=== PATIENT | female | born 1955 | race Caucasian/White ===

== ENCOUNTER 2017-08-21 10:39 | Observation (INO) | payer OTHER, SELFPAY ==
[2017-08-08 15:43] VITALS: BP 137/73; PULSE 85; RESP 16; TEMP 36.7; O2SAT 97; BMI 40.4
[2017-08-08 16:23] LABS: Hemoglobin A1c 6.9 % (4.2-6.3)
[2017-08-08 16:27] LABS: International Normalized Ratio 1.1; Prothrombin Time (Protime)PT. 13.8 SECONDS (11.7-14.9)
[2017-08-08 16:28] LABS: Partial Thromboplast Time 32.5 Seconds (24.1-36.2)
[2017-08-21] VITALS (9 sets, daily range): BP systolic 116–182; BP diastolic 70–93; PULSE 68–115; RESP 16–19; TEMP 36.2–36.6; O2SAT 89–100; BMI 40.4
[2017-08-21 08:36] LABS: Anion Gap 6 (5-15); BUN 18 mg/dL (7-18); Calcium,Total 9.1 mg/dL (8.5-10.1); Chloride 107 mmol/L (98-107); Creatinine, Serum 0.78 mg/dL (0.55-1.02); EST Glomerular Filtration Rate 79 mL/min (>60); Est Glom Filt Rate - Afr Amer 96 mL/min (>60); Estimated Creatinine Clearance 64.58 ml/min; Glucose 172 mg/dL (74-106); Potassium 4.5 mmol/L (3.5-5.1); Sodium Level 140 mmol/L (136-145)
[2017-08-21] MEDS: oxyCODONE HCl Cr 10 MG Tablet PO (08:41)
[2017-08-21] MEDS: Acetaminophen 500 MG Tablet 1000 MG PO ×3 (08:41→20:59)
[2017-08-21 09:02] LABS: Bedside Glucose 167 mg/dL (70-110)
--- NOTE | 2017-08-21 10:40 | RAD_ITS ---
STUDY: X-RAY - RIGHT KNEE REASON FOR EXAM: Female, 62 years old. Total knee replacement. TECHNIQUE: AP and lateral view(s) of the knee. COMPARISON: None. FINDINGS: Normal visualized distal femur. Normal visualized proximal tibia and fibula. Normal proximal tibiofibular articulation. The patient is status post total knee replacement. There is good alignment. Postoperative soft tissue changes. RAD/Knee 1 or 2 Views IMPRESSION: Status post total knee replacement. Postoperative soft tissue changes. Electronically Signed: Margarito Lala MD at 13:35 EST Tel [phone], Service support ,
[2017-08-21] MEDS: Cefazolin 2 GM in 0.9% Normal Saline 100 ML IV (10:44)
[2017-08-21 13:36] LABS: Bedside Glucose 149 mg/dL (70-110)
[2017-08-21] MEDS: Ondansetron 4 MG/2 ML Vial IV (14:00)
--- NOTE | 2017-08-21 15:52 | CPS ---
Pt not in room at this time. Incentive Spirometer at bedside.
[2017-08-21] MEDS: Aspirin 325 MG Tablet PO (17:18)
[2017-08-21] MEDS: oxyCODONE 5 MG Tablet PO (17:18)
[2017-08-21] MEDS: Cefazolin 1 GM/50 ML BAG IV (19:02)
[2017-08-21] MEDS: Lactated Ringers 1,000 ML 125 ML IV (21:00)
[2017-08-22 02:55] VITALS: BP 124/56; PULSE 82; RESP 19; TEMP 37; O2SAT 93
[2017-08-22] MEDS: Cefazolin 1 GM/50 ML BAG IV (04:00)
[2017-08-22] MEDS: oxyCODONE 5 MG Tablet PO ×4 (05:17→20:59)
[2017-08-22] MEDS: Acetaminophen 500 MG Tablet 1000 MG PO ×3 (05:19→21:00)
[2017-08-22 06:37] LABS: Hematocrit 32.2 % (37-47); Hemoglobin 10.8 g/dl (12.0-15.0); Mean Corp Hgb Conc 33.5 g/gl (32-36); Mean Corpuscular Hgb 32.8 pg (27.0-32.0); Mean Corpuscular Volume 97.9 fL (81-99); Mean Platelet Vol. 8.9 fl (6.2-12.0); Platelet Count 206 K/mm3 (150-450); RBC Distribution Width CV 12.3 % (11.6-14.6); RBC Distribution Width SD 42.3 fl (35.1-43.9); Red Blood Count 3.29 M/mm3 (4.2-5.4); White Blood Count 7.1 K/mm3 (4.4-11.0)
[2017-08-22 06:38] LABS: Scan Indicated on CBC? Y/N NO
[2017-08-22 06:48] LABS: Anion Gap 7 (5-15); BUN 14 mg/dL (7-18); BUN/Creat Ratio 20.6 RATIO (10-20); Calcium,Total 7.9 mg/dL (8.5-10.1); Chloride 106 mmol/L (98-107); Creatinine, Serum 0.68 mg/dL (0.55-1.02); EST Glomerular Filtration Rate 93 mL/min (>60); Est Glom Filt Rate - Afr Amer 113 mL/min (>60); Estimated Creatinine Clearance 74.07 ml/min; Glucose 149 mg/dL (74-106); Potassium 4.1 mmol/L (3.5-5.1); Sodium Level 141 mmol/L (136-145)
--- NOTE | 2017-08-22 07:55 | PCM.PN.ORT ---
Subjective: Patient is resting comfortably in bed during exam. No adverse events overnight. Pain in the right knee has been fairly well controlled to this point she has gotten not been transferred to the bedside commode. She currently denies chest pain, shortness of breath, calf pain. His occasionally felt dizzy with standing but no syncopal events. Objective: Patient is alert and oriented ?3. No acute distress at rest. Breathing easily without respiratory distress. Inspection of right knee reveals a dressing with 1 small drop of bloody drainage otherwise intact. Negative Doug bilaterally without signs of DVT sensation intact to light touch bilateral lower extremities. Patient able to actively plantar and dorsiflex bilateral feet against resistance. Pedal pulses present and equal bilaterally. Patient is neurovascularly intact. - Physical Exam Vital Signs Temp Pulse Resp BP Pulse Ox 98.6 F 82 19 H 124/56 H 93 08/22/17 02:55 08/22/17 02:55 08/22/17 02:55 08/22/17 02:55 08/22/17 02:55 Oxygen Flow Rate 2 Oxygen Delivery Method Room Air Weight: 107 kg Body Mass Index (BMI) 40.4 Finger Stick Blood Glucose 149 Intake and Output for Last 24 Hours 08/20/17 08/21/17 08/22/17 23:59 23:59 23:59 Intake Total 2913 / 2913 2046 / 2046 Output Total 375 / 375 1050 / 1050 Balance 2538 / 2538 996 / 996 Laboratory Tests Past 24 Hrs 08/21/17 08/22/17 08/22/17 08:10 06:00 06:00 WBC 7.1 RBC 3.29 L Hgb 10.8 L Hct 32.2 L MCV 97.9 MCH 32.8 H MCHC 33.5 RDW 12.3 RDW Differential 42.3 Plt Count 206 MPV 8.9 Sodium 140 141 Potassium 4.5 4.1 Chloride 107 106 Carbon Dioxide 27.0 28.0 Anion Gap 6 7 BUN 18 14 Creatinine 0.78 0.68 Estim Creat Clear Calc 64.58 74.07 Est GFR (MDRD) Af Amer 96 113 Est GFR (MDRD) Non-Af 79 93 BUN/Creatinine Ratio 23.0 H 20.6 H Glucose 172 H 149 H Calcium 9.1 7.9 L POC Glucose 08/21/17 08/21/17 13:30 08:28 POC Glucose 149 H 167 H Assessment/Plan 1. Status post right TKA; postop day #1 2. Continue Tylenol and OxyIR for pain control 3. DVT prophylaxis; bilateral teds, SCDs and begin aspirin therapy 4. Begin PT/OT; weightbearing as tolerated right lower extremity with a walker 5. Drop in hemoglobin/hematocrit, asymptomatic; continue to monitor. Without indication for transfusion 6. Encourage incentive spirometry 7. Continue discharge planning with case management. If patient continues with adequate pain control and does well with physical therapy today we will anticipate discharge to home
--- NOTE | 2017-08-22 08:04 | PCM.DC.TKR ---
Discharge Diet: 1800 Calorie Control Diet Discharge Activity: May Not Drive, May not drive while taking narcotic pain medications., Use Walker May shower in (days): 2 - Okay to shower over Mepilex dressing Ice area for (Minutes): 20 - every hour while awake. Weight Bearing Status: Weight bearing as tolerated Elevate: Operative Extremity Additional Activity Instructions:: Wear elastic stockings for 2 weeks after your surgery. See postoperative pink sheet Call your doctor if your incision/area has: Continuous Slow Oozing, Sudden Increased Bleeding, Increased Pain/ Swelling, Increased Redness, Foul Smelling Discharge Call your doctor if you observe: Fever of 101 or Higher, Coldness, Increased Pain, Numbness or Tingling, Change in Color, Calf discomfort, Uncontrolled pain Remove Dressing in (days):: 5 Cleanse incision/area with: Soap & Water Additional Dressing/Incision Instructions:: See postoperative pink sheet Allergies/Adverse Reactions: Allergies lidocaine Allergy (Verified 08/08/17 15:17) Hives Medications to take at Discharge Ascorbic Acid [Vitamin C] 500 mg PO DAILY@0800 08/08/17 Cholecalciferol (Vitamin D3) [Vitamin D3] 1,000 unit PO DAILY 08/08/17 Cyanocobalamin [Vitamin B12] 1,000 mcg PO DAILY@0800 08/08/17 Docusate Sodium [Colace] 200 mg PO DAILY 08/08/17 Ferrous Sulfate [Iron] 325 mg PO DAILY 08/08/17 Glimepiride [Amaryl] 4 mg PO DAILY 08/08/17 Lisinopril [Zestril] 5 mg PO DAILY 08/08/17 Revestatrol 250 mg PO DAILY 08/08/17 Simvastatin [Zocor] 10 mg PO DAILY 08/08/17 Sitagliptin Phos/Metformin HCl [Janumet 50-1,000 MG Tablet] 2 tablet PO DAILY 08/08/17 Turmeric Root Extract [Turmeric] 500 mg PO BID 08/08/17 Vital Reds Dietary Drink 8 oz PO DAILY 08/08/17 Acetaminophen [Tylenol] 1,000 mg PO Q8 #60 tab 08/22/17 Aspirin 325 mg PO BIDCM #30 tab 08/22/17 Linagliptin [Tradjenta] 5 mg PO DAILY@0800 tablet 08/22/17 Metformin(XR) [Glucophage Xr] 2,000 mg PO DAILY@0800 tablet 08/22/17 Oxycodone [Oxyir] 5 - 10 mg PO Q4H PRN PRN 7 Days #56 tablet 08/22/17 The following prescriptions were given: Oxycodone [Oxyir] 5 - 10 mg PO Q4H PRN PRN 7 Days #56 tablet PRN Reason: Mod-Severe Pain (-04/24) Acetaminophen [Tylenol] 1,000 mg PO Q8 #60 tab Aspirin 325 mg PO BIDCM #30 tab Primary Care Physician: Won Barnhart [Primary Care Provider] - Proposed Discharge Date: 08/22/17
[2017-08-22] MEDS: Glimepiride 4 MG Tablet PO (08:56)
[2017-08-22] MEDS: Ferrous Sulfate 325 MG Tablet PO (08:56)
[2017-08-22] MEDS: Aspirin 325 MG Tablet PO ×2 (08:56→17:31)
[2017-08-22] MEDS: LINAGLIPTIN 5 MG TABLET PO (08:57)
[2017-08-22] MEDS: Cyanocobalamin 500 MCG Tablet 1000 MCG PO (08:58)
[2017-08-22] MEDS: Docusate Sodium 100 MG Capsule 200 MG PO (08:58)
[2017-08-22] MEDS: Ascorbic Acid 500 MG Tablet PO (08:58)
[2017-08-22] MEDS: Atorvastatin Calcium 10 MG Tablet 5 MG PO (08:58)
[2017-08-22] MEDS: Lisinopril 5 MG Tablet PO (08:59)
[2017-08-22 09:18] VITALS: BP 134/70; PULSE 85; RESP 18; TEMP 36.7; O2SAT 95
--- NOTE | 2017-08-22 10:40 | CASEMGMT ---
YANETH MAYS Face to Face with patient for initial transition planning/care coordination assessment. RN TABATHA introduced self and role at [facility]. Patient lying in bed, alert and oriented. Patient willing to participate in assessment and is able to answer all questions appropriately. Care providers, pharmacy, and demographics verified. See link attached. Patient wishes to discharge home and is setup with Robina Dubon for outpatient therapy. Patient states she has no further needs or concerns at this time. CM to follow for discharge planning needs that may arise. Disposition Plan: Patient wishes to discharge home with outpatient therapy, family support, and follow-up plans in place.
[2017-08-22 15:12] VITALS: BP 128/71; PULSE 78; RESP 18; TEMP 37; O2SAT 94
[2017-08-22 20:34] VITALS: BP 139/53; PULSE 88; RESP 18; TEMP 36.9; O2SAT 97
[2017-08-23 02:29] VITALS: BP 137/72; PULSE 104; RESP 20; TEMP 37.1; O2SAT 96
[2017-08-23] MEDS: oxyCODONE 5 MG Tablet PO ×2 (04:07→12:56)
[2017-08-23 05:55] LABS: Hematocrit 32.5 % (37-47); Hemoglobin 10.6 g/dl (12.0-15.0); Mean Corp Hgb Conc 32.6 g/gl (32-36); Mean Corpuscular Hgb 32.1 pg (27.0-32.0); Mean Corpuscular Volume 98.5 fL (81-99); Mean Platelet Vol. 8.6 fl (6.2-12.0); Platelet Count 205 K/mm3 (150-450); RBC Distribution Width CV 12.5 % (11.6-14.6); White Blood Count 8.7 K/mm3 (4.4-11.0)
[2017-08-23 06:03] LABS: Scan Indicated on CBC? Y/N NO
[2017-08-23] MEDS: Acetaminophen 500 MG Tablet 1000 MG PO ×2 (06:03→12:57)
[2017-08-23] MEDS: Atorvastatin Calcium 10 MG Tablet 5 MG PO (07:35)
[2017-08-23] MEDS: Aspirin 325 MG Tablet PO (07:35)
[2017-08-23] MEDS: Cyanocobalamin 500 MCG Tablet 1000 MCG PO (07:36)
[2017-08-23] MEDS: Ascorbic Acid 500 MG Tablet PO (07:36)
[2017-08-23] MEDS: LINAGLIPTIN 5 MG TABLET PO (07:37)
[2017-08-23] MEDS: Ferrous Sulfate 325 MG Tablet PO (07:37)
[2017-08-23] MEDS: Docusate Sodium 100 MG Capsule 200 MG PO (07:37)
[2017-08-23] MEDS: Glimepiride 4 MG Tablet PO (07:37)
[2017-08-23] MEDS: Lisinopril 5 MG Tablet PO (07:38)
[2017-08-23 07:41] VITALS: BP 133/67; PULSE 93; RESP 16; TEMP 37.3; O2SAT 92
[2017-08-23 11:27] VITALS: BP 145/71; PULSE 76; RESP 16; TEMP 37.2; O2SAT 97
--- NOTE | 2017-08-23 15:48 | PCM.PN.ORT ---
Subjective: Patient was doing much better with physical therapy today the pain in her knee is much better controlled. She feels she is now ready for discharge to home. Currently denies chest pain, shortness of breath, dizziness, calf pain. Doing well overall. Patient denies bowel movement but admits to flatus. Objective: Patient is alert and oriented ?3. No acute distress. Breathing easily without respiratory distress. Right knee is with dressing with mild dried bloody drainage. Negative Doug bilaterally without signs of DVT. Patient able to actively plantar and dorsiflex bilateral feet against resistance. Sensation intact light touch pedal pulses present +2 bilaterally. Neurovascularly intact. - Physical Exam Vital Signs Temp Pulse Resp BP Pulse Ox 99 F 76 16 145/71 H 97 08/23/17 11:27 08/23/17 11:27 08/23/17 11:27 08/23/17 11:27 08/23/17 11:27 Oxygen Flow Rate 2 Oxygen Delivery Method Room Air Weight: 107 kg Body Mass Index (BMI) 40.4 Finger Stick Blood Glucose 149 Intake and Output for Last 24 Hours 08/21/17 08/22/17 08/23/17 23:59 23:59 23:59 Intake Total 2913 / 2913 2896 / 2896 880 / 880 Output Total 375 / 375 1750 / 1750 Balance 2538 / 2538 1146 / 1146 880 / 880 Laboratory Tests Past 24 Hrs 08/23/17 05:36 WBC 8.7 RBC 3.30 L Hgb 10.6 L Hct 32.5 L MCV 98.5 MCH 32.1 H MCHC 32.6 RDW 12.5 RDW Differential 43.0 Plt Count 205 MPV 8.6 Assessment/Plan 1. Status post right TKA; postop day #2 2. Continue Tylenol and OxyIR for pain control 3. DVT prophylaxis; bilateral teds, SCDs and begin aspirin therapy 4. Continue PT/OT; weightbearing as tolerated right lower extremity with a walker 5. Drop in hemoglobin/hematocrit, asymptomatic; continue to monitor. Without indication for transfusion 6. Encourage incentive spirometry 7. Orthopedically stable okay for discharge to home today
== END 2017-08-23 15:52 | disposition home or self-care (01) ==
LOC: SDC 12:05
PROVIDERS: Anesthesiology; Admitting Provider Orthopaedic Surgery; Family Provider Nurse Practitioner Family; PCP Nurse Practitioner Family; Visit Provider Orthopaedic Surgery
PROC: (CPT 27447; principal; 2017-08-21 09:45)
DX: M17.11 Unilateral primary osteoarthritis, right knee (principal); E11.9 Type 2 diabetes mellitus without complications; D50.9 Iron deficiency anemia, unspecified; E78.00 Pure hypercholesterolemia, unspecified; Z79.899 Other long term (current) drug therapy; Z79.82 Long term (current) use of aspirin; I10 Essential (primary) hypertension; Z79.84 Long term (current) use of oral hypoglycemic drugs
CPT/HCPCS: 01402; 27447; 36415; 73560; 80048; 82962; 83036; 85027; 85610; 85730; 96361; 96365; 96366; 96375; 97110; 97116; 97162; 97165; 97530; 97535; 99218; J7120; G0378; G0379; J2405

== ENCOUNTER → 2017-11-08 12:00 | Outpatient (CLI) | payer OTHER, SELFPAY ==
--- NOTE | 2017-11-08 12:02 | BI_ITS ---
MAMMOGRAPHY - BILATERAL SCREENING 3-D BALJIT SYNTHESIS REASON FOR EXAM: Female, 62 years old. Bilateral Screening 3-D tomosynthesis PERTINENT HISTORY: No significant family history. TECHNIQUE: 2-D mammograms and 3-D Baljit synthesis of the breast (s) were performed. CAD was performed. COMPARISON: April 27, 2016. FINDINGS: The breast composition is heterogeneously dense that can obscure small breast masses. Scattered benign calcifications are seen. No dense spiculated masses or suspicious clustered microcalcifications are identified. No architectural distortion is identified. There is no skin thickening or retraction. There is a stable, somewhat reniform, 13.8 mm nodule within the mid to deep left upper lateral breast with a fatty/lucent cleft. This finding appears most compatible with an intramammary lymph node. There has been no significant change since the prior study. BI/SCREENING MAMM (CAD), BILAT IMPRESSION: No mammographic signs of malignancy. Routine yearly mammograms recommended. ASSESSMENT CATEGORY: BIRADS Category 2: Benign. A letter regarding these results will be sent to the patient by the facility within 30 days. FOLLOW UP RECOMMENDATION: Yearly follow up mammogram recommended. (A) Approximately 10% of breast cancers are not detected by mammography. A normal mammogram should not delay biopsy of a clinically suspicious abnormality. Electronically Signed: Leo Miranda MD at 15:18 EDT , Service support ,
== END ==
PROVIDERS: Family Provider Nurse Practitioner Family; PCP Nurse Practitioner Family; Visit Provider Nurse Practitioner Family
DX: Z12.31 Encounter for screening mammogram for malignant neoplasm of breast (principal)
CPT/HCPCS: 77063; 77067

== ENCOUNTER → 2019-01-03 13:27 | Outpatient (CLI) | payer OTHER, SELFPAY ==
--- NOTE | 2019-01-03 13:30 | BI_ITS ---
MAMMOGRAPHY - BILATERAL SCREENING 3-D TOMOSYNTHESIS REASON FOR EXAM: Female, 63 years old. Bilateral Screening 3-D tomosynthesis PERTINENT HISTORY: No significant family history. TECHNIQUE: 2-D mammograms and 3-D Tomosynthesis of the breast (s) were performed. CAD was performed. COMPARISON: November 08, 2017, April 27, 2016 FINDINGS: The breast composition is almost entirely fat. Scattered benign calcifications are seen. No dense spiculated masses or suspicious microcalcifications are identified. No architectural distortion is identified. There is no skin thickening or retraction. There has been no significant change since the prior study. BI/SCREEN MAMM (CAD) W/BALJIT BILAT IMPRESSION: No mammographic signs of malignancy. Routine yearly mammograms recommended. ASSESSMENT CATEGORY: BIRADS Category 2: Benign. A letter regarding these results will be sent to the patient by the facility within 30 days. FOLLOW UP RECOMMENDATION: Yearly follow up mammogram recommended. (A) Approximately 10% of breast cancers are not detected by mammography. A normal mammogram should not delay biopsy of a clinically suspicious abnormality. Electronically Signed: Eric Henry MD at 16:14 EDT , Service support ,
== END ==
PROVIDERS: Family Provider Nurse Practitioner Family; PCP Nurse Practitioner Family; Referring Provider Nurse Practitioner Family; Visit Provider Nurse Practitioner Family
DX: Z12.31 Encounter for screening mammogram for malignant neoplasm of breast (principal)
CPT/HCPCS: 77063; 77067

== ENCOUNTER → 2020-03-30 12:03 | Outpatient (CLI) | payer MEDICARE, OTHER, SELFPAY ==
--- NOTE | 2020-03-30 12:05 | BI_ITS ---
MAMMOGRAPHY - BILATERAL SCREENING REASON FOR EXAM: Female, 65 years old. Routine annual screening examination. PERTINENT HISTORY: Non-contributory. TECHNIQUE: Digital bilateral breast baljit (3D mammographic acquisition) in the CC and MLO projections. 2-D mediolateral oblique (MLO) and craniocaudad (CC) views of both breasts were obtained. CAD: Full Field Digital Mammography with Computer Added Detection was performed. COMPARISON: Comparison is made with prior study dated 01/03/2019 and 11/08/2017. FINDINGS: Breast Composition: There are scattered areas of fibroglandular density. There are no dominant masses or suspicious calcifications. Stable 1.3 cm well-defined nodule in the upper lateral aspect of the left breast. A central notch is seen within it suggestive of a benign lymph node. No other significant abnormalities are identified. There has been no significant change since the prior study. BI/SCREEN MAMM (CAD) W/BALJIT BILAT IMPRESSION: Stable bilateral screening mammogram. Yearly follow-up mammogram recommended. (A) ASSESSMENT CATEGORY: BIRADS Category 2: Benign. A letter regarding these results will be sent to the patient by the facility within 30 days. Approximately 10% of breast cancers are not detected by mammography. A normal mammogram should not delay biopsy of a clinically suspicious abnormality. [id number] Electronically Signed: Margarito Lala, at 13:43 EDT , Service support ,
== END ==
PROVIDERS: PCP Nurse Practitioner Family; Referring Provider Nurse Practitioner Family; Visit Provider Nurse Practitioner Family
DX: Z12.31 Encounter for screening mammogram for malignant neoplasm of breast (principal)
CPT/HCPCS: 77063; 77067

== ENCOUNTER → 2021-05-09 12:01 | Outpatient (CLI) | payer MEDICARE, OTHER, SELFPAY ==
--- NOTE | 2021-05-09 12:05 | BI_ITS ---
MAMMOGRAPHY - BILATERAL SCREENING REASON FOR EXAM: Female, 66 years old. Routine annual screening examination. PERTINENT HISTORY: Non-contributory. TECHNIQUE: Digital bilateral breast baljit (3D mammographic acquisition) in the CC and MLO projections. 2-D mediolateral oblique (MLO) and craniocaudad (CC) views of both breasts were obtained. CAD: Full Field Digital Mammography with Computer Added Detection was performed. COMPARISON: Comparison is made with prior study dated 03/30/2020 and 01/03/2019. FINDINGS: Breast Composition: There are scattered areas of fibroglandular density. There are no dominant masses or suspicious calcifications. Stable 1.3 cm well-defined nodule in the upper lateral aspect of the left breast. This is suggestive of a small lymph node. No other significant abnormalities are identified. There has been no significant change since the prior study. BI/SCRN MAMM (CAD)W/BALJIT BILAT IMPRESSION: Stable bilateral screening mammogram. Yearly follow-up mammogram recommended. (A) ASSESSMENT CATEGORY: BIRADS Category 2: Benign. A letter regarding these results will be sent to the patient by the facility within 30 days. Approximately 10% of breast cancers are not detected by mammography. A normal mammogram should not delay biopsy of a clinically suspicious abnormality. [id number] Electronically Signed: Margarito Lala MD at 13:14 EDT , Service support ,
== END ==
PROVIDERS: PCP Nurse Practitioner Family; Referring Provider Nurse Practitioner Family; Visit Provider Nurse Practitioner Family
DX: Z12.31 Encounter for screening mammogram for malignant neoplasm of breast (principal)
CPT/HCPCS: 77063; 77067

== ENCOUNTER → 2022-06-29 | Outpatient (CLI) | payer MEDICARE, OTHER, SELFPAY ==
--- NOTE | 2022-06-29 09:26 | BI_ITS ---
MAMMOGRAPHY - BILATERAL SCREENING REASON FOR EXAM: Female, 67 years old. Routine annual screening examination. PERTINENT HISTORY: Non-contributory. TECHNIQUE: Digital bilateral breast baljit (3D mammographic acquisition) in the CC and MLO projections. 2-D mediolateral oblique (MLO) and craniocaudad (CC) views of both breasts were obtained. CAD: Full Field Digital Mammography with Computer Added Detection was performed. COMPARISON: Comparison is made with prior study dated 05/09/2021 and 03/30/2020. FINDINGS: Breast Composition: There are scattered areas of fibroglandular density. There are no dominant masses or suspicious calcifications. Stable 1.3 cm well-defined nodule in the upper lateral aspect of the left breast suggestive of a small lymph node. No other significant abnormalities are identified. There has been no significant change since the prior study. BI/SCRN MAMM (CAD)W/BALJIT BILAT IMPRESSION: Stable bilateral screening mammogram. Yearly follow-up mammogram recommended. (A) ASSESSMENT CATEGORY: BIRADS Category 2: Benign. A letter regarding these results will be sent to the patient by the facility within 30 days. Approximately 10% of breast cancers are not detected by mammography. A normal mammogram should not delay biopsy of a clinically suspicious abnormality. [id number] Electronically Signed: Margarito Lala MD at 13:33 EST ,
--- NOTE | 2022-06-29 09:31 | BD_ITS ---
STUDY: DUAL ENERGY X-RAY ABSORPTIOMETRY / DXA REASON FOR EXAM: Female, 67 years old. [id number] TECHNIQUE: Bone Mineral Density (BMD) measurements of lumbar spine and bilateral hips were obtained. COMPARISON: None. FINDINGS: Lumbar Spine (L1-L4): g/cm2 (1.5-1) / T-score (4.0) / Z-score (6.0) Findings are suggestive of normal bone density with a low fracture risk. Left Femur Total: g/cm2 (1.28) / T-score (2.8) / Z-score (4.1) Left Femoral Neck: g/cm2 (1.120) / T-score (2.4) / Z-score (4.1) Right Femur Total: g/cm2 (1.187) / T-score (2.0) / Z-score (3.4) Right Femoral Neck: g/cm2 (1.127) / T-score (2.5) / Z-score (4.1) BD/Dexa Bone Density Study IMPRESSION: The patient is considered normal as outlined below according to World Manuel Organization (WHO) criteria with a low fracture risk. Reference Information: The T-score is the number of standard deviations above or below the standard which is normal for young adults at their peak bone mineral density. The World Health Organization (WHO) interprets the T-scores as follows: Above -1 Normal bone density Between -1 and -2.5 Osteopenia Equal to / or below -2.5 Osteoporosis As a practical clinical guideline, osteopenia may be graded as follows: Mild -1 through -1.5 Moderate -1.6 through -2.0 Severe -2.1 through -2.4 The Z-score is the number of standard deviations above or below age-matched controls. A Z-score of less than -1.5 would be considered abnormal. References: 1. NIH Osteoporosis and Related Bone Diseases www osteo.org 2. International Society for Clinical Densitometry www iscd.org 3. National Osteoporosis Foundation www nof.org Electronically Signed: Margarito Lala MD at 15:29 EST ,
== END | disposition home or self-care (01) ==
LOC: OPBD 09:22
PROVIDERS: PCP Nurse Practitioner Family; Visit Provider Nurse Practitioner Family
DX: Z12.31 Encounter for screening mammogram for malignant neoplasm of breast (principal); M81.0 Age-related osteoporosis without current pathological fracture
CPT/HCPCS: 77063; 77067; 77080

== ENCOUNTER → 2023-11-01 | Outpatient (CLI) | payer MEDICARE, OTHER, SELFPAY ==
--- NOTE | 2023-11-01 14:43 | BI_ITS ---
MAMMOGRAPHY - BILATERAL SCREENING REASON FOR EXAM: Female, 68 years old. Routine annual screening examination. PERTINENT HISTORY: Non-contributory. TECHNIQUE: Digital bilateral breast baljit (3D mammographic acquisition) in the CC and MLO projections. 2-D mediolateral oblique (MLO) and craniocaudad (CC) views of both breasts were obtained. CAD: Full Field Digital Mammography with Computer Added Detection was performed. COMPARISON: Comparison is made with prior study dated June 29, 2022 and May 09, 2021. FINDINGS: Breast Composition: There are scattered areas of fibroglandular density. There are no dominant masses or suspicious calcifications. Stable 1.3 cm well-defined nodule in the upper lateral aspect of the left breast suggestive of a small intramammary lymph node. No other significant abnormalities are identified. There has been no significant change since the prior study. BI/SCRN MAMM (CAD)W/BALJIT BILAT IMPRESSION: Stable bilateral screening mammogram. Yearly follow-up mammogram recommended. (A) ASSESSMENT CATEGORY: BIRADS Category 2: Benign. A letter regarding these results will be sent to the patient by the facility within 30 days. Approximately 10% of breast cancers are not detected by mammography. A normal mammogram should not delay biopsy of a clinically suspicious abnormality. [id number] Electronically Signed: Margarito Lala MD at 15:45 EDT ,
== END | disposition home or self-care (01) ==
LOC: OPBI 14:41
PROVIDERS: PCP Nurse Practitioner Family; Referring Provider Nurse Practitioner Family; Visit Provider Nurse Practitioner Family
DX: Z12.31 Encounter for screening mammogram for malignant neoplasm of breast (principal)
CPT/HCPCS: 77063; 77067

== ENCOUNTER 2024-01-28 14:26 | Emergency (ER) | payer OTHER, MEDICARE, SELFPAY ==
[2024-01-28 14:28] VITALS: BP 141/117; PULSE 75; RESP 16; TEMP 36.1; O2SAT 97
[2024-01-28 16:26] VITALS: BP 174/103; PULSE 64
--- NOTE | 2024-01-28 17:26 | EDS_ITS ---
HPI History of Present Illness Chief Complaint: Hypertension Narrative Narrative: 68-year-old female presenting with right knee pain. She states she was walking into work and there was some glue on the ground and she inadvertently slipped on it and struck her right knee on the ground. She fell but denies hitting her head. She is unable to get up but states I am 69 tomorrow and I do not get up real good. EMS came and evaluated her. Her blood pressure was notably high she says it was over 200. Patient states that she has had a total knee replacement on the right side. She has not tried to bear weight. Denies numbness or tingling. PFSH PFSH Home Medications ?Medication ?Instructions ?Recorded ?Last Taken ?Type Revestatrol 250 mg PO DAILY supplement 08/08/17 Unknown History Vital Reds Dietary Drink 8 oz PO DAILY supplement 08/08/17 Unknown History ascorbic acid (vitamin C) 500 mg 500 mg PO DAILY@0800 supplement 08/08/17 Unknown History tablet (Vitamin C) cholecalciferol (vitamin D3) 25 1,000 unit PO DAILY supplement 08/08/17 Unknown History mcg (1,000 unit) capsule (Vitamin D3) cyanocobalamin (vitamin B-12) 500 1,000 mcg PO DAILY@0800 supplement 08/08/17 Unknown History mcg tablet docusate sodium 100 mg capsule 200 mg PO DAILY stool softner 08/08/17 Unknown History (DOK) ferrous sulfate 325 mg (65 mg 325 mg PO DAILY low iron 08/08/17 Unknown History iron) tablet (Iron (ferrous sulfate)) glimepiride 4 mg tablet 4 mg PO DAILY diabetes 08/08/17 Unknown History lisinopril 5 mg tablet (Zestril) 5 mg PO DAILY bp 08/08/17 Unknown History simvastatin 10 mg tablet (Zocor) 10 mg PO DAILY cholesterol 08/08/17 Unknown History sitagliptin phosphate 50 2 tab PO DAILY diabetes 08/08/17 Unknown History mg-metformin 1,000 mg tablet (Janumet) turmeric root extract 500 mg 500 mg PO BID supplement 08/08/17 Unknown History capsule acetaminophen 500 mg tablet 1,000 mg (2 x 500 mg) PO Q8 #60 08/22/17 Unknown Rx tabs aspirin 325 mg tablet 325 mg PO BIDCM #30 tabs 08/22/17 Unknown Rx linagliptin 5 mg tablet (Tradjenta) 5 mg PO DAILY@0800 08/22/17 Unknown Rx metformin 500 mg tablet,extended 2,000 mg (4 x 500 mg) PO DAILY@0800 08/22/17 Unknown Rx release 24 hr oxycodone 5 mg tablet 5 - 10 mg (1 - 2 x 5 mg) PO Q4H 08/22/17 Unknown Rx PRN PRN Mod-Severe Pain (4-10/10) 7 days ##56 Allergy/AdvReac Type Severity Reaction Status Date / Time lidocaine Allergy Hives Verified 01/28/24 14:28 Social History Smoking Status: Never smoker ROS ROS ED Constitutional Constitutional ED: Denies chills, fever(s) or sweats Eyes Eyes: Denies blurry vision or change in vision ENT ENT ED: Denies ear pain or sore throat Cardiovascular Cardiovascular: Denies chest pain, palpitations or racing heartbeat Respiratory/Chest Respiratory/Chest: Denies cough, dyspnea or sputum Gastrointestinal Gastrointestinal: Denies abdominal pain, constipation, diarrhea, nausea or vomiting Genitourinary Genitourinary ED: Denies dysuria, hematuria or urinary frequency Musculoskeletal Musculoskeletal: Reports other Details: Right knee pain ; Denies arthralgias, myalgias or neck pain Integumentary Denies abscess, Abrasions or rash Neurologic Neurologic: Denies headache(s), paresthesias or weakness Psychiatric Psychiatric: Denies anxiety, depression, suicidal ideation or suicidal thoughts Endocrine Endocrinology: Denies polydipsia or polyuria EXAM Physical Exam Const Vital Signs: 01/28/24 14:28 01/28/24 16:26 01/28/24 16:34 Temperature 97 F L Temperature Source Temporal Pulse Rate 75 64 Respiratory Rate 16 Respiratory Effort Normal Respiratory Depth Respiratory Pattern Normal Blood Pressure 141/117 H 174/103 H Blood Pressure Mean 125 126 Pulse Ox 97 Oxygen Delivery Method Room Air 01/28/24 16:34 01/28/24 18:00 01/28/24 18:32 Temperature Temperature Source Pulse Rate 63 60 Respiratory Rate 16 Respiratory Effort Normal Respiratory Depth Normal Respiratory Pattern Normal Blood Pressure 167/91 H 160/80 H Blood Pressure Mean 116 106 Pulse Ox Oxygen Delivery Method Room Air Positive well nourished General Appearance ED: NAD HEENT Reports moist mucous membranes trauma Eyes PERRL and EOMs intact bilaterally Neck no lymphadenopathy Resp normal respiratory effort Auscultation: Negative for rales, rhonchi or wheezes Cardio regular rate and regular rhythm Extremity Extremity Narrative: Right knee: Tenderness to palpation over the patella. Extensor mechanism is intact. No tenderness over the medial lateral joint line. Neuro oriented x3 and CN's II-XII intact bilaterally Sensorium / Orientation: alert Skin no rashes or lesions noted MDM MDM MDM Narrative Medical decision making narrative: Patient presenting fall. She states her blood pressure was elevated on the scene. Its come down. I do believe she needs lab work. We discussed this at length. Her knee is tender over the patella so we did obtain an x-ray. She declines analgesia. Patient has been up and ambulating throughout the emergency room. She states she walked to the bathroom and she felt stable. X-ray of the right knee 4 views on my interpretation shows no acute fracture or subluxation. The radiologist interprets this and agrees. Patient declines any work restrictions at this time. Of note patient's blood pressure 147/80 on last evaluation. Discharged in stable condition. Impression: 1. Slip and fall 2. Right knee contusion 3. Hypertension Radiography Diagnostic Testing: Clinical Impression(s) from Imaging Studies Knee X-Ray 01/28/24 17:40 IMPRESSION: Status post total knee replacement.. Prepatellar soft tissue swelling Electronically Signed: Bryce Milligan DO at 18:43 EDT Reading Location ID and State: [facility] / [place] Tel [phone], Service support , Discharge Plan Triage Chief Complaint: Hypertension Other Complaint: Fall ED Provider: Simon Valiente Dx/Rx/DC Orders Instructions: ED Contusion, Lower Extremity Prescriptions: No Action simvastatin [Zocor] 10 MG tablet 10 mg PO DAILY cyanocobalamin (vitamin B-12) 500 MCG tablet 1,000 mcg PO DAILY@0800 ascorbic acid (vitamin C) [Vitamin C] 500 MG tablet 500 mg PO DAILY@0800 ferrous sulfate [Iron (ferrous sulfate)] 325 MG tablet 325 mg PO DAILY glimepiride 4 MG tablet 4 mg PO DAILY docusate sodium [DOK] 100 MG capsule 200 mg PO DAILY lisinopril [Zestril] 5 MG tablet 5 mg PO DAILY cholecalciferol (vitamin D3) [Vitamin D3] 1,000 UNIT capsule 1,000 unit PO DAILY sitagliptin phos-metformin [Janumet] 1 TABLET tablet 2 tab PO DAILY turmeric root extract 500 MG capsule 500 mg PO BID Revestatrol 250 mg PO DAILY Vital Reds Dietary Drink 8 oz PO DAILY aspirin 325 MG tablet 325 mg PO BIDCM Qty: 30 0RF acetaminophen 500 MG tablet 1,000 mg PO Q8 Qty: 60 0RF metformin 500 MG tablet 2,000 mg PO DAILY@0800 0RF oxycodone 5 MG tablet 5 - 10 mg PO Q4H PRN PRN (Reason: Mod-Severe Pain (4-04/24)) 7 Days Qty: 56 0RF linagliptin [Tradjenta] 5 MG tablet 5 mg PO DAILY@0800 0RF Primary Care Provider: Won Barnhart NP Referrals: Won Barnhart NP, [employer] [Primary Care Provider] - Print Language: Ukrainian Disposition Disposition: Home, Self Care
--- NOTE | 2024-01-28 17:40 | RAD_ITS ---
INDICATION: knee pain EXAMINATION/TECHNIQUE: X-RAY - RIGHT XR Knee Complete 4 Views COMPARISON: FINDINGS: SOFT TISSUES: There is prepatellar soft tissue swelling. No radiopaque foreign body. BONES/JOINTS: No acute fracture or subluxation.. Status post total knee replacement with hardware components demonstrating satisfactory alignment. Degenerative spurring of the patella. No sclerotic or destructive changes observed. RAD/Knee 4 or More Views IMPRESSION: Status post total knee replacement.. Prepatellar soft tissue swelling Electronically Signed: Bryce Milligan DO at 18:43 EDT ,
[2024-01-28 18:00] VITALS: BP 167/91; PULSE 63
[2024-01-28 18:32] VITALS: BP 160/80; PULSE 60; RESP 16
[2024-01-28 19:31] VITALS: BP 166/56; PULSE 61; RESP 18; TEMP 36.6; O2SAT 98
== END 2024-01-28 19:32 | disposition home or self-care (01) ==
PROVIDERS: Emergency Provider Student in an Organized Health Care Education/Training Program; PCP Nurse Practitioner Family; Visit Provider Student in an Organized Health Care Education/Training Program
DX: S80.01XA Contusion of right knee, initial encounter (principal); W01.0XXA Fall on same level from slipping, tripping and stumbling without subsequent striking against object, initial encounter; Y93.01 Activity, walking, marching and hiking; Y99.0 Civilian activity done for income or pay; I10 Essential (primary) hypertension; Z79.82 Long term (current) use of aspirin; Z79.84 Long term (current) use of oral hypoglycemic drugs; Z79.899 Other long term (current) drug therapy; Z96.651 Presence of right artificial knee joint
CPT/HCPCS: 73564; 99283

== ENCOUNTER → 2024-11-04 | Outpatient (CLI) | payer MEDICARE, OTHER, SELFPAY ==
--- NOTE | 2024-11-04 15:42 | BI_ITS ---
EXAM: SCRN MAMM (CAD)W/BALJIT BILAT DATE: 11/04/2024 CLINICAL HISTORY: F, Age 69 y/o , SCREENING BREAST CANCER RISK ASSESSMENT: Not reported TECHNIQUE: Bilateral screening digital breast tomosynthesis with 2D and 3D images. Computer aided detection. COMPARISON: Prior exam(s) were compared FINDINGS: TISSUE DENSITY: The breast tissue is heterogenously dense, which may obscure small masses. Bilateral Breast Mammographic Findings: No suspicious masses, calcifications or other abnormalities are identified. BI/SCRN MAMM (CAD)W/BALJIT BILAT IMPRESSION: OVERALL FINAL ASSESSMENT: BIRADS 1 NEGATIVE RECOMMENDATION: Routine annual follow-up in 1 Year A letter with findings and recommendations will be mailed to the patient. Reading Location: [id number]
--- NOTE | 2024-11-04 15:45 | BD_ITS ---
PROCEDURE: DEXA BONE DENSITY STUDY 11/04/2024 REASON FOR EXAM: F, age 69 y/o . Postmenopausal. TECHNIQUE: DXA scan of the lumbar spine and bilateral hip, using make and model. REFERENCE LINKS: ISCD Adult Positions COMPARISON: 06/29/2022 FINDINGS: BMD and T-SCORES Lumbar spine: 1.412 g/cm2, T-Score 3.0 L1 through L4 Change from prior: Left femoral neck: 1.127 g/cm2, T-Score 2.5 Femoral neck comparison data not recommended for monitoring change. Left total hip: 1.272 g/cm2, T-Score 2.7 Change from prior: Right femoral neck: 1.139 g/cm2, T-Score 2.6 Femoral neck comparison data not recommended for monitoring change. Right total hip: 1.164 g/cm2, T-Score 1.8 Change from prior: Left 1/3 radius: g/cm2, T-Score Change from prior: Right 1/3 radius: g/cm2, T-Score Change from prior: Fracture Risk Calculation: FRAX (10-year Fracture Risk) Score: FRAX scores should never be reported in a patient with osteoporosis on DEXA or for any patient that is on bone medication. The patient meet the pharmacological treatment recommendations for prevention of osteoporosis BD/Dexa Bone Density Study IMPRESSION: NORMAL T-SCORES. Recommend follow-up as clinically warranted. Reading Location: [id number]
== END | disposition home or self-care (01) ==
PROVIDERS: PCP Nurse Practitioner Family; Referring Provider Nurse Practitioner Family; Visit Provider Nurse Practitioner Family
DX: Z12.31 Encounter for screening mammogram for malignant neoplasm of breast (principal); Z78.0 Asymptomatic menopausal state; N95.0 Postmenopausal bleeding
CPT/HCPCS: 77063; 77067; 77080